=== PATIENT | female | born 1970 | race Caucasian/White ===

== ENCOUNTER 2024-07-24 18:50 | Emergency (ER) | payer OTHER ==
[~2024-07-24] VITALS: Ht 160 cm; Wt 67.6 kg
[2024-07-24] MEDS ORDERED: LEVETIRACETAM PO ×2 (19:12→19:13)
[2024-07-24] MEDS ORDERED: AMITRIPTYLINE10 MG PO (19:13)
[2024-07-24] MEDS ORDERED: RELPAX40 MG PO (19:13)
[2024-07-24] MEDS ORDERED: SODIUM CHLORIDE 0.9% 1,000 ML IV ONE (20:45)
[2024-07-24] MEDS ORDERED: Ketorolac Tromethamine 15 MG/ML VIAL IV ONE (20:45)
[2024-07-24] MEDS ORDERED: diphenhydrAMINE hydrochloride 50 MG/ML VIAL IV ONE (20:45)
[2024-07-24] MEDS ORDERED: Ondansetron Hydrochloride 4 MG/2 ML VIAL IV ONE (20:45)
== END 2024-07-24 22:48 | disposition home or self-care (01) ==
LOC: ED 18:50
DX: G43.909 Migraine, unspecified, not intractable, without status migrainosus (principal); Z20.822 Contact with and (suspected) exposure to COVID-19; R11.0 Nausea